=== PATIENT | born 1945 | race Caucasian/White ===

== ENCOUNTER → 2023-06-18 08:19 | Outpatient (BNVA) | payer OTHER, SELFPAY | PROVIDERS: Visit Provider Specialist | DX: G31.84 Mild cognitive impairment of uncertain or unknown etiology | CPT/HCPCS: 96116; 99204; 99205 ==

== ENCOUNTER → 2023-09-25 13:14 | Outpatient (BNVA) | payer OTHER, SELFPAY | PROVIDERS: Visit Provider Specialist | DX: R41.3 Other amnesia (principal) | CPT/HCPCS: 99213 ==

== ENCOUNTER → 2024-04-07 10:46 | Outpatient (BNVA) | payer OTHER, SELFPAY | PROVIDERS: PCP Family Medicine; Visit Provider Specialist | DX: G31.84 Mild cognitive impairment of uncertain or unknown etiology (principal) | CPT/HCPCS: 96116; 99214 ==

== ENCOUNTER → 2024-10-05 12:22 | Outpatient (BNVA) | payer OTHER, SELFPAY | PROVIDERS: PCP Family Medicine; Visit Provider Specialist | DX: G31.84 Mild cognitive impairment of uncertain or unknown etiology (principal); G30.9 Alzheimer's disease, unspecified | CPT/HCPCS: 99214 ==